=== PATIENT | male | born 1935 | race Caucasian/White ===

== ENCOUNTER 2019-06-02 08:04 | Emergency (ER) | payer OTHER ==
[~2019-06-02] VITALS: Ht 182.9 cm; Wt 77.1 kg
[2019-06-02 08:10] VITALS: BP_SYST 191
[2019-06-02 08:49] LABS: BASOPHILS % (AUTO) 0.5 % (0.0-2.0); EOSINOPHILS # (AUTO) 0.6 K/uL (0.0-0.4); EOSINOPHILS % (AUTO) 6.5 % (0.0-4.0); HEMATOCRIT 48.6 % (36-54); LYMPHOCYTES % (AUTO) 22.3 % (20.5-51.5); MEAN CORPUSCULAR HEMOGLOBIN 31 pg (27-31); MEAN CORPUSCULAR HGB CONC 33 % (32-36); MEAN CORPUSCULAR VOLUME 93 fL (79.0-98.0); MONOCYTES # (AUTO) 0.7 K/uL (0.0-1.0); MONOCYTES % (AUTO) 8.3 % (1.7-9.3); NEUTROPHILS # (AUTO) 5.5 K/uL (1.8-7.7); NEUTROPHILS % (AUTO) 62.4 % (40.0-70.0); PLATELET COUNT (AUTO) 263 K/uL (130-430); RED BLOOD CELL COUNT(AUTO) 5.21 MIL/uL (4.2-6.2); RED CELL DISTRIBUTION WIDTH 15.6 % (9.0-15.0); WHITE BLOOD COUNT (AUTO) 8.8 K/uL (4.8-10.8)
[2019-06-02 09:03] LABS: ANION GAP 7 (5-15); CALCIUM 9.8 mg/dL (8.4-11.0); CHLORIDE 103 mmol/L (98-107); CREATININE 1.43 mg/dL (0.55-1.30); GLUCOSE 93 mg/dL (70-99); SODIUM SERUM 140 mmol/L (136-145); UREA NITROGEN, BLOOD 26 mg/dL (8-21)
[2019-06-02] MEDS: hydrALAZINE HCL 20 MG/ML VIAL IVP ONE (09:09)
[2019-06-02 09:11] LABS: ALANINE AMINOTRANSFERASE 20 U/L (12-78); ASPARTATE AMINOTRANSFERASE 17 U/L (10-37)
[2019-06-02 10:15] VITALS: BP_SYST 152
[2019-06-02] MEDS ORDERED: ATOR40TA68 PO (19:05)
[2019-06-02] MEDS ORDERED: CARB1TAB8 PO (19:05)
[2019-06-02] MEDS ORDERED: CYAN100010 PO (19:05)
[2019-06-02] MEDS ORDERED: ROTI1PAT7 TP (19:05)
[2019-06-02] MEDS ORDERED: ARGI1POW13 PO (19:05)
[2019-06-02] MEDS ORDERED: MELA3TAB64 PO (19:05)
[2019-06-02] MEDS ORDERED: MULT-1117 PO (19:05)
[2019-06-02] MEDS ORDERED: BISA10SU61 RC (19:05)
[2019-06-02] MEDS ORDERED: BACL10TA PO (19:05)
[2019-06-02] MEDS ORDERED: DSS (19:05)
[2019-06-02] MEDS ORDERED: CIPR-211 PO (19:05)
[2019-06-02] MEDS ORDERED: FOLI-43 PO (19:05)
[2019-06-02] MEDS ORDERED: THIA50TA10 PO (19:05)
[2019-06-02] MEDS ORDERED: ACET-73 PO (19:05)
[2019-06-02] MEDS ORDERED: POTA20TA83 PO (19:05)
[2019-06-02] MEDS ORDERED: ALLO300T2 PO (19:05)
[2019-06-02] MEDS ORDERED: DITXL5 PO (19:05)
[2019-06-02] MEDS ORDERED: ASPI-1153 PO (19:05)
== END 2019-06-02 10:15 | disposition home or self-care (01) ==
LOC: SED 08:04
DX: I10 Essential (primary) hypertension (principal); E78.5 Hyperlipidemia, unspecified; Z79.82 Long term (current) use of aspirin; Z86.2 Personal history of diseases of the blood and blood-forming organs and certain disorders involving the immune mechanism; Z79.899 Other long term (current) drug therapy; W06.XXXA Fall from bed, initial encounter; Y93.89 Activity, other specified; Y92.89 Other specified places as the place of occurrence of the external cause; Y99.8 Other external cause status
CPT/HCPCS: 36415; 70450; 72125; 72192; 80053; 84484; 85025; 93005; 96374; 99285; J0360

== ENCOUNTER 2019-06-02 17:25 | Inpatient (IN) | payer OTHER ==
[~2019-06-02] VITALS: Ht 165.1 cm; Wt 76.7 kg
[2019-06-02 17:46] VITALS: BP_SYST 153
[2019-06-02] MEDS ORDERED: CYAN100010 PO (19:05)
[2019-06-02] MEDS ORDERED: ROTI1PAT7 TP (19:05)
[2019-06-02] MEDS ORDERED: MELA3TAB64 PO (19:05)
[2019-06-02] MEDS ORDERED: ARGI1POW13 PO (19:05)
[2019-06-02] MEDS ORDERED: ALLO300T2 PO (19:05)
[2019-06-02] MEDS ORDERED: CIPR-211 PO (19:05)
[2019-06-02] MEDS ORDERED: THIA50TA10 PO (19:05)
[2019-06-02] MEDS ORDERED: CARB1TAB8 PO (19:05)
[2019-06-02] MEDS ORDERED: BISA10SU61 RC (19:05)
[2019-06-02] MEDS ORDERED: FOLI-43 PO (19:05)
[2019-06-02] MEDS ORDERED: MULT-1117 PO (19:05)
[2019-06-02] MEDS ORDERED: BACL10TA PO (19:05)
[2019-06-02] MEDS ORDERED: DITXL5 PO (19:05)
[2019-06-02] MEDS ORDERED: ASPI-1153 PO (19:05)
[2019-06-02] MEDS ORDERED: DSS (19:05)
[2019-06-02] MEDS ORDERED: ACET-73 PO (19:05)
[2019-06-02] MEDS ORDERED: POTA20TA83 PO (19:05)
[2019-06-02] MEDS ORDERED: ATOR40TA68 PO (19:05)
[2019-06-02] MEDS ORDERED: ACETAMINOPHEN 500 MG TABLET PO PRN (19:45)
[2019-06-02] MEDS: MELATONIN 3 MG TABLET PO SCH (21:00)
[2019-06-02] MEDS ORDERED: ENOXAPARIN SODIUM 30 MG/0.3 ML SYRINGE SUBCUT SCH (21:00)
[2019-06-02] MEDS: POTASSIUM CHLORIDE 20 MEQ TAB.PRT.SR PO SCH (21:58)
[2019-06-02] MEDS: CIPROFLOXACIN HCL 500 MG TABLET PO SCH (21:58)
[2019-06-02] MEDS: KCL 20 mEq in D5/0.45NS 1000mL 1,000 ML IV SCH (22:12)
[2019-06-02] MEDS: OXYBUTYNIN CHLORIDE 5 MG TABLET PO SCH (22:21)
[2019-06-02] MEDS: BACLOFEN 10 MG TABLET PO SCH (22:22)
[2019-06-02] MEDS: ATORVASTATIN 20 MG TABLET PO SCH (22:23)
[2019-06-02] MEDS ORDERED: BACLOFEN 10 MG TABLET ONE (22:25)
[2019-06-02] MEDS ORDERED: OXYBUTYNIN CHLORIDE 5 MG TABLET ONE (22:25)
[2019-06-02] MEDS ORDERED: ATORVASTATIN 10 MG TABLET ONE (22:26)
[2019-06-03 01:38] VITALS: BP_SYST 146
[2019-06-03 07:46] LABS: BASOPHILS # (AUTO) 0.1 K/uL (0.0-0.2); BASOPHILS % (AUTO) 0.9 % (0.0-2.0); EOSINOPHILS # (AUTO) 0.6 K/uL (0.0-0.4); EOSINOPHILS % (AUTO) 6.9 % (0.0-4.0); HEMATOCRIT 45.1 % (36-54); HEMOGLOBIN 14.8 g/dL (14.0-18.0); LYMPHOCYTES # (AUTO) 2.7 K/uL (1.0-5.5); LYMPHOCYTES % (AUTO) 32.1 % (20.5-51.5); MEAN CORPUSCULAR HEMOGLOBIN 31 pg (27-31); MEAN CORPUSCULAR HGB CONC 33 % (32-36); MEAN CORPUSCULAR VOLUME 93 fL (79.0-98.0); MONOCYTES # (AUTO) 0.8 K/uL (0.0-1.0); MONOCYTES % (AUTO) 9.2 % (1.7-9.3); NEUTROPHILS # (AUTO) 4.2 K/uL (1.8-7.7); NEUTROPHILS % (AUTO) 50.9 % (40.0-70.0); PLATELET COUNT (AUTO) 250 K/uL (130-430); RED BLOOD CELL COUNT(AUTO) 4.86 MIL/uL (4.2-6.2); RED CELL DISTRIBUTION WIDTH 15.3 % (9.0-15.0); WHITE BLOOD COUNT (AUTO) 8.3 K/uL (4.8-10.8)
[2019-06-03 08:08] LABS: ANION GAP 8 (5-15); CALCIUM 9.1 mg/dL (8.4-11.0); CHLORIDE 105 mmol/L (98-107); CREATININE 1.18 mg/dL (0.55-1.30); GLUCOSE 77 mg/dL (70-99); POTASSIUM 3.7 mmol/L (3.5-5.1); SODIUM SERUM 141 mmol/L (136-145); UREA NITROGEN, BLOOD 25 mg/dL (8-21)
[2019-06-03 08:16] VITALS: BP_SYST 161
[2019-06-03] MEDS ORDERED: BISACODYL 10 MG/SUPPOSITORY RC SCH (09:00)
[2019-06-03] MEDS: THIAMINE HCL 100 MG TABLET PO SCH (10:04)
[2019-06-03] MEDS: ALLOPURINOL 300 MG TABLET (ZYLOPRIM) PO SCH (10:05)
[2019-06-03] MEDS: OXYBUTYNIN CHLORIDE 5 MG TABLET PO SCH ×2 (10:05→20:46)
[2019-06-03] MEDS: MULTIVITAMINS TAB 1 TABLET PO SCH (10:06)
[2019-06-03] MEDS: CIPROFLOXACIN HCL 500 MG TABLET PO SCH ×2 (10:06→20:46)
[2019-06-03] MEDS: CYANOCOBALAMIN 1000 mCg TABLET PO SCH (10:06)
[2019-06-03] MEDS: ASPIRIN 81 MG TABLET(ECOTRIN) PO SCH (10:06)
[2019-06-03] MEDS: FOLIC ACID 1 MG TABLET PO SCH (10:07)
[2019-06-03] MEDS: POTASSIUM CHLORIDE 20 MEQ TAB.PRT.SR PO SCH ×2 (10:07→20:46)
[2019-06-03] MEDS: BACLOFEN 10 MG TABLET PO SCH ×2 (10:07→20:46)
[2019-06-03] MEDS: DOCUSATE SODIUM 250 MG CAPSULE PO SCH (10:07)
[2019-06-03] MEDS: KCL 20 mEq in D5/0.45NS 1000mL 1,000 ML IV SCH ×2 (10:38→20:45)
[2019-06-03] MEDS: CARBIDOPA/LEVODOPA 10/100 MG TABLET PO SCH ×3 (10:38→20:45)
[2019-06-03 13:16] VITALS: BP_SYST 140
[2019-06-03] MEDS ORDERED: NEUPRO TD ONE (16:00)
[2019-06-03 16:37] VITALS: BP_SYST 158
[2019-06-03 20:00] VITALS: BP_SYST 136
[2019-06-03] MEDS: MELATONIN 3 MG TABLET PO SCH (20:45)
[2019-06-03] MEDS: ATORVASTATIN 20 MG TABLET PO SCH (20:45)
[2019-06-03] MEDS: ENOXAPARIN SODIUM 40 MG/0.4 ML SYRINGE SUBCUT SCH (20:46)
[2019-06-04 01:44] VITALS: BP_SYST 117
[2019-06-04 09:00] VITALS: BP_SYST 176
[2019-06-04] MEDS: DOCUSATE SODIUM 250 MG CAPSULE PO SCH (09:43)
[2019-06-04] MEDS: OXYBUTYNIN CHLORIDE 5 MG TABLET PO SCH ×2 (09:43→20:31)
[2019-06-04] MEDS: CYANOCOBALAMIN 1000 mCg TABLET PO SCH (09:43)
[2019-06-04] MEDS: MULTIVITAMINS TAB 1 TABLET PO SCH (09:43)
[2019-06-04] MEDS: CARBIDOPA/LEVODOPA 10/100 MG TABLET PO SCH ×3 (09:43→20:31)
[2019-06-04] MEDS: POTASSIUM CHLORIDE 20 MEQ TAB.PRT.SR PO SCH ×2 (09:43→20:31)
[2019-06-04] MEDS: ASPIRIN 81 MG TABLET(ECOTRIN) PO SCH (09:43)
[2019-06-04] MEDS: FOLIC ACID 1 MG TABLET PO SCH (09:44)
[2019-06-04] MEDS: BACLOFEN 10 MG TABLET PO SCH ×2 (09:44→20:31)
[2019-06-04] MEDS: CIPROFLOXACIN HCL 500 MG TABLET PO SCH ×2 (09:44→20:30)
[2019-06-04] MEDS: ALLOPURINOL 300 MG TABLET (ZYLOPRIM) PO SCH (09:44)
[2019-06-04] MEDS: THIAMINE HCL 100 MG TABLET PO SCH (09:44)
[2019-06-04 12:21] VITALS: BP_SYST 153
[2019-06-04] MEDS ORDERED: MUPIROCIN 2% TOPICAL OINTMENT 22 GM NS ONE (13:30)
[2019-06-04] MEDS: KCL 20 mEq in D5/0.45NS 1000mL 1,000 ML IV SCH (14:46)
[2019-06-04 15:48] VITALS: BP_SYST 149
[2019-06-04] MEDS: NEUPRO TD SCH (16:00)
[2019-06-04 20:25] VITALS: BP_SYST 150
[2019-06-04] MEDS: ATORVASTATIN 20 MG TABLET PO SCH (20:31)
[2019-06-04] MEDS: MUPIROCIN 2% TOPICAL OINTMENT 22 GM NS SCH (20:32)
[2019-06-04] MEDS: ENOXAPARIN SODIUM 40 MG/0.4 ML SYRINGE SUBCUT SCH (20:42)
[2019-06-04] MEDS: MELATONIN 3 MG TABLET PO SCH (20:42)
[2019-06-05 01:22] VITALS: BP_SYST 159
[2019-06-05] MEDS: KCL 20 mEq in D5/0.45NS 1000mL 1,000 ML IV SCH ×2 (02:58→14:54)
[2019-06-05] MEDS: CYANOCOBALAMIN 1000 mCg TABLET PO SCH (09:41)
[2019-06-05] MEDS: CARBIDOPA/LEVODOPA 10/100 MG TABLET PO SCH ×3 (09:41→22:53)
[2019-06-05] MEDS: CIPROFLOXACIN HCL 500 MG TABLET PO SCH ×2 (09:42→22:53)
[2019-06-05] MEDS: ALLOPURINOL 300 MG TABLET (ZYLOPRIM) PO SCH (09:42)
[2019-06-05] MEDS: BACLOFEN 10 MG TABLET PO SCH ×2 (09:42→22:54)
[2019-06-05] MEDS: ASPIRIN 81 MG TABLET(ECOTRIN) PO SCH (09:42)
[2019-06-05] MEDS: FOLIC ACID 1 MG TABLET PO SCH (09:42)
[2019-06-05] MEDS: MULTIVITAMINS TAB 1 TABLET PO SCH (09:42)
[2019-06-05] MEDS: OXYBUTYNIN CHLORIDE 5 MG TABLET PO SCH ×2 (09:42→22:54)
[2019-06-05] MEDS: DOCUSATE SODIUM 250 MG CAPSULE PO SCH (09:42)
[2019-06-05] MEDS: POTASSIUM CHLORIDE 20 MEQ TAB.PRT.SR PO SCH ×2 (09:42→22:53)
[2019-06-05] MEDS: THIAMINE HCL 100 MG TABLET PO SCH (09:42)
[2019-06-05] MEDS: ASCORBATE SOD PO SCH (09:44)
[2019-06-05] MEDS: ARGININE PO SCH (09:44)
[2019-06-05] MEDS: VITE AC PO SCH (09:44)
[2019-06-05] MEDS: MUPIROCIN 2% TOPICAL OINTMENT 22 GM NS SCH ×2 (09:45→22:53)
[2019-06-05 12:18] VITALS: BP_SYST 176
[2019-06-05] MEDS: cloNIDine HCL 0.1 MG TABLET PO PRN ×2 (15:29→23:05)
[2019-06-05 16:11] VITALS: BP_SYST 171
[2019-06-05] MEDS: NEUPRO TD SCH (18:05)
[2019-06-05 20:57] VITALS: BP_SYST 152
[2019-06-05] MEDS: LOSARTAN POTASSIUM 50 MG TABLET (COZAAR) PO SCH (22:54)
[2019-06-05] MEDS: ATORVASTATIN 20 MG TABLET PO SCH (22:54)
[2019-06-05] MEDS: ENOXAPARIN SODIUM 40 MG/0.4 ML SYRINGE SUBCUT SCH (22:55)
[2019-06-05] MEDS: MELATONIN 3 MG TABLET PO SCH (22:57)
[2019-06-05 23:52] VITALS: BP_SYST 184
[2019-06-06 02:08] VITALS: BP_SYST 148
[2019-06-06] MEDS: KCL 20 mEq in D5/0.45NS 1000mL 1,000 ML IV SCH ×2 (06:30→17:19)
[2019-06-06 08:41] VITALS: BP_SYST 132
[2019-06-06] MEDS: ARGININE PO SCH (09:00)
[2019-06-06] MEDS: VITE AC PO SCH (09:00)
[2019-06-06] MEDS: ASCORBATE SOD PO SCH (09:00)
[2019-06-06] MEDS: BACLOFEN 10 MG TABLET PO SCH ×2 (09:44→21:46)
[2019-06-06] MEDS: OXYBUTYNIN CHLORIDE 5 MG TABLET PO SCH ×2 (09:44→21:46)
[2019-06-06] MEDS: THIAMINE HCL 100 MG TABLET PO SCH (09:44)
[2019-06-06] MEDS: CARBIDOPA/LEVODOPA 10/100 MG TABLET PO SCH ×3 (09:44→21:46)
[2019-06-06] MEDS: MUPIROCIN 2% TOPICAL OINTMENT 22 GM NS SCH ×2 (09:44→21:47)
[2019-06-06] MEDS: FOLIC ACID 1 MG TABLET PO SCH (09:44)
[2019-06-06] MEDS: ALLOPURINOL 300 MG TABLET (ZYLOPRIM) PO SCH (09:44)
[2019-06-06] MEDS: ASPIRIN 81 MG TABLET(ECOTRIN) PO SCH (09:45)
[2019-06-06] MEDS: LOSARTAN POTASSIUM 50 MG TABLET (COZAAR) PO SCH ×2 (09:45→21:53)
[2019-06-06] MEDS: POTASSIUM CHLORIDE 20 MEQ TAB.PRT.SR PO SCH ×2 (09:45→21:46)
[2019-06-06] MEDS: CIPROFLOXACIN HCL 500 MG TABLET PO SCH ×2 (09:45→21:46)
[2019-06-06] MEDS: CYANOCOBALAMIN 1000 mCg TABLET PO SCH (09:45)
[2019-06-06] MEDS: MULTIVITAMINS TAB 1 TABLET PO SCH (09:45)
[2019-06-06] MEDS: DOCUSATE SODIUM 250 MG CAPSULE PO SCH (09:45)
[2019-06-06 12:22] VITALS: BP_SYST 102
[2019-06-06] MEDS: NEUPRO TD SCH (16:00)
[2019-06-06 16:18] VITALS: BP_SYST 99
[2019-06-06 20:15] VITALS: BP_SYST 137
[2019-06-06] MEDS: ATORVASTATIN 20 MG TABLET PO SCH (21:46)
[2019-06-06] MEDS: MELATONIN 3 MG TABLET PO SCH (21:47)
[2019-06-06] MEDS: ENOXAPARIN SODIUM 40 MG/0.4 ML SYRINGE SUBCUT SCH (21:49)
[2019-06-07] VITALS (8 sets, daily range): BP systolic 99–156
[2019-06-07 06:17] LABS: ANION GAP 8 (5-15); CALCIUM 9.2 mg/dL (8.4-11.0); CHLORIDE 105 mmol/L (98-107); CREATININE 1.19 mg/dL (0.55-1.30); GLUCOSE 93 mg/dL (70-99); POTASSIUM 4.2 mmol/L (3.5-5.1); SODIUM SERUM 141 mmol/L (136-145); UREA NITROGEN, BLOOD 22 mg/dL (8-21)
[2019-06-07 06:26] LABS: BASOPHILS # (AUTO) 0.1 K/uL (0.0-0.2); BASOPHILS % (AUTO) 0.7 % (0.0-2.0); EOSINOPHILS # (AUTO) 0.7 K/uL (0.0-0.4); EOSINOPHILS % (AUTO) 7.2 % (0.0-4.0); HEMATOCRIT 47.2 % (36-54); HEMOGLOBIN 15.4 g/dL (14.0-18.0); LYMPHOCYTES # (AUTO) 2.6 K/uL (1.0-5.5); LYMPHOCYTES % (AUTO) 26.3 % (20.5-51.5); MEAN CORPUSCULAR HEMOGLOBIN 31 pg (27-31); MEAN CORPUSCULAR HGB CONC 33 % (32-36); MEAN CORPUSCULAR VOLUME 94 fL (79.0-98.0); MONOCYTES # (AUTO) 0.6 K/uL (0.0-1.0); MONOCYTES % (AUTO) 6.1 % (1.7-9.3); NEUTROPHILS # (AUTO) 5.8 K/uL (1.8-7.7); NEUTROPHILS % (AUTO) 59.7 % (40.0-70.0); PLATELET COUNT (AUTO) 272 K/uL (130-430); RED BLOOD CELL COUNT(AUTO) 5.03 MIL/uL (4.2-6.2); RED CELL DISTRIBUTION WIDTH 15.2 % (9.0-15.0); WHITE BLOOD COUNT (AUTO) 9.8 K/uL (4.8-10.8)
[2019-06-07] MEDS: VITE AC PO SCH (09:00)
[2019-06-07] MEDS: LOSARTAN POTASSIUM 50 MG TABLET (COZAAR) PO SCH (09:00)
[2019-06-07] MEDS: ASCORBATE SOD PO SCH (09:00)
[2019-06-07] MEDS: ARGININE PO SCH (09:00)
[2019-06-07] MEDS: CARBIDOPA/LEVODOPA 10/100 MG TABLET PO SCH ×3 (10:28→20:13)
[2019-06-07] MEDS: CIPROFLOXACIN HCL 500 MG TABLET PO SCH ×2 (10:28→20:12)
[2019-06-07] MEDS: MULTIVITAMINS TAB 1 TABLET PO SCH (10:28)
[2019-06-07] MEDS: MUPIROCIN 2% TOPICAL OINTMENT 22 GM NS SCH ×2 (10:28→20:11)
[2019-06-07] MEDS: CYANOCOBALAMIN 1000 mCg TABLET PO SCH (10:28)
[2019-06-07] MEDS: DOCUSATE SODIUM 250 MG CAPSULE PO SCH (10:28)
[2019-06-07] MEDS: THIAMINE HCL 100 MG TABLET PO SCH (10:28)
[2019-06-07] MEDS: POTASSIUM CHLORIDE 20 MEQ TAB.PRT.SR PO SCH ×2 (10:28→20:13)
[2019-06-07] MEDS: BACLOFEN 10 MG TABLET PO SCH ×2 (10:28→20:11)
[2019-06-07] MEDS: ASPIRIN 81 MG TABLET(ECOTRIN) PO SCH (10:28)
[2019-06-07] MEDS: OXYBUTYNIN CHLORIDE 5 MG TABLET PO SCH ×2 (10:30→20:13)
[2019-06-07] MEDS: FOLIC ACID 1 MG TABLET PO SCH (10:30)
[2019-06-07] MEDS: ALLOPURINOL 300 MG TABLET (ZYLOPRIM) PO SCH (10:30)
[2019-06-07] MEDS: KCL 20 mEq in D5/0.45NS 1000mL 1,000 ML IV SCH ×2 (15:47→20:00)
[2019-06-07] MEDS: NEUPRO TD SCH (15:50)
[2019-06-07] MEDS: MELATONIN 3 MG TABLET PO SCH (20:13)
[2019-06-07] MEDS: ATORVASTATIN 20 MG TABLET PO SCH (20:13)
[2019-06-07] MEDS: ENOXAPARIN SODIUM 40 MG/0.4 ML SYRINGE SUBCUT SCH (20:31)
[2019-06-07] MEDS ORDERED: LOSARTAN POTASSIUM 25 MG TABLET PO SCH (21:00)
== END 2019-06-07 21:08 | DRG 682 ==
LOC: SED 17:25 → STU 18:35 → SMU 06-04 12:51
PROVIDERS: ADMIT Family Medicine; ATTEND Family Medicine
DX: N17.9 Acute kidney failure, unspecified (principal); G93.41 Metabolic encephalopathy; E86.0 Dehydration; G20 Parkinson's disease; I10 Essential (primary) hypertension; M19.90 Unspecified osteoarthritis, unspecified site; E78.5 Hyperlipidemia, unspecified; Z79.899 Other long term (current) drug therapy
CPT/HCPCS: 36415; 80048; 83735-TC; 85025; 87081; 95816; 96372; 97110-GP; 97112-GP; 97116-GP; 97530-GP; 99285; G0378; J1650